=== PATIENT | female | born 1980 | race Caucasian/White ===

== ENCOUNTER → 2020-10-05 | Outpatient (CLI) | payer BC ==
--- NOTE | 2020-10-06 15:54 | RAD ---
Examination: MG DIAGNOSTIC BILAT History: Reason: bilateral callback / Comparison/Correlation: 09/20/2012 Technique: Bilateral digital diagnostic mammogram Spot compression and mediolateral views were obtain ed bilaterally. CAD was utilized. Findings: Breast Tissue Density B : There are scattered areas of fibroglandular density. Persistence of a some increase is noted. Well-defined mass or distortion are not definitely seen rivera mamadou. No suspicious mammographic aspirations. IMPRESSION: No suspicious finding. Asymmetries persists on spot compression. BI-RADS category 3: Probably benign. Bilateral six-month mammographic exam recommended to assess sta bility. The images were reviewed with computer aided detection. Patient information is entered into the reminder system with a target due date for the next screening mammogram. Mammography is the most sensitive method for finding small breast cancers, but it does not detect the m all and is not a substitute for careful clinical examination. A negative mammogram does not negate a clinically suspicious finding and should not result in delay in biopsying a clinically suspicious a bnormality. "Our facility is accredited by the [employer] Mammography Program." Electronically signed by: Mahad Canales MD (10/06/2020 3:52 PM) [facility]
== END ==
LOC: MAMMO 14:01
PROVIDERS: ATTEND Nurse Practitioner Family
DX: R92.2 Inconclusive mammogram (principal)
CPT/HCPCS: 77066